=== PATIENT | female | born 1955 | race Two or more races ===

== ENCOUNTER → 2016-11-03 | Outpatient (CLI) | payer BC ==
--- NOTE | 2016-11-04 06:55 | HKNOTE ---
DATE OF SERVICE: 11/03/2016 MAIN COMPLAINT: Pain in the right knee. HISTORY OF MAIN COMPLAINT: The patient is a 60-year-old female who complains of pain in her right k nee which has been present for about 8 months. There has been no history of injury to the knee. Claudia norris has seen at least 2 orthopedic surgeons who told her that the problem arises from her right hip an d not from the knee. She has had a combination injection of Orthovisc and cortisone into the right hip and this gave her some relief for about a month. She had PRP injection into the right hip, subs equently which gave her relief for about 2 days. She now comes in for another opinion. PRESENT COMPLAINTS: The pain is localized to the anterior and medial aspects of her right knee. Th e knee does not swell, does not lock, and does not feel unstable. She does not get any pain at all in the right groin. However, she does get pain in the anterior asp ect of the right thigh below the groin which radiates down to just above the knee. Her pain is aggr avated by walking, weightbearing, and stair climbing. She does get rest pain, and she does get nigh t pain. She has been taking ibuprofen and Tylenol which helps somewhat. She also has been applying ice. She does not have any back pain, no numbness or tingling in her legs. On a flat and level harrington rface, she can walk for 3/4 of a mile without stopping. However, she does get pain in the knee with every step that she takes. She does limp all the time. Her leg lengths feel equal. She does not have a shoe lift. She can clip her toenails and tie her shoelaces. SPORTING ACTIVITIES: Walking. PAST ORTHOPEDIC HISTORY: PREVIOUS ORTHOPEDIC OPERATIONS: None. PRIOR CORTISONE INTAKE: One injection. ALCOHOL INTAKE: None. OTHER JOINT PROBLEMS: None. BLOOD TESTS FOR ARTHRITIS: None. PRIOR INJURIES TO HIPS OR KNEES: The patient fell twice and landed on her right side of her body wh en she was a child. WORK STATUS: The patient is a psychotherapist. PAST MEDICAL HISTORY: Negative. PAST SURGICAL HISTORY: Schwannoma removed February 2016. No sequelae. ALLERGIES: NONE. MEDICATIONS: None. FAMILY HISTORY: Mother of cancer, otherwise noncontributory. SYSTEMS REVIEW: Has occasional skipping heartbeats, varicose veins, gait disturbance, possibly a he art murmur, otherwise negative. HABITS: The patient does not smoke or drink alcoholic beverages. PHYSICAL EXAMINATION: GENERAL: An exceedingly youthful and fit-looking 60-year-old female. She looks at least 10 years y ounger than her stated age. VITAL SIGNS: Height 5 feet 1, weight 126 pounds. Blood pressure 135/60, temperature 98.0. EXTREMITIES: Gait appears to be normal without a trace of limp. NEUROLOGIC: Motor examination reveals no muscle deficit in the lower extremities. Deep tendon refle xes in the lower extremities: Right knee jerk plus, left knee jerk plus, right ankle jerk plus, lef t ankle jerk plus. Straight leg raising is negative bilaterally at 80 degrees. Lasegue and BALWINDER kenn ts are negative. RIGHT HIP: A full range of motion with pain in the right knee on forced flexion of the right hip as well as forced external rotation of the right hip. No tenderness anywhere around the right hip. LEFT HIP: Full range of motion without pain. RIGHT KNEE: The right knee shows normal alignment. Active and passive extension is 0 degrees. Activ e and passive flexion is 135 degrees. The medial and lateral collateral ligaments and cruciate ligam ents are intact. Reynold test is negative. There is no effusion, tenderness, scarring, crepitus, or cysts. The patella tracks normally. There is no tenderness on the articular surface of the patella o r in the patellar groove. The Q angle is normal. LEFT KNEE: The left knee shows normal alignment. Active and passive extension is 0 degrees. Active and passive flexion is 135 degrees. The medial and lateral collateral ligaments and cruciate ligamen ts are intact. Reynold test is negative. There is no effusion, tenderness, scarring, crepitus, or cy sts. The patella tracks normally. There is no tenderness on the articular surface of the patella or in the patellar groove. The Q angle is normal. IMAGING: Plain x-rays of the pelvis and right hip obtained today show advanced degenerative osteoar thritis of the right hip with marked narrowing of the joint space, not completely [id number]. Lar ge osteophytes. Subchondral sclerosis and intraosseous cyst formation. The left hip shows similar narrowing of the joint space, but none of the other secondary changes. DISCUSSION: A 60-year-old female who has seen several physicians now who had have advised her that she does not have a problem in the right knee, but the problem is indeed in her right hip. The topher ent seems to be on a quest and mentions that she has recently considered having stem cell injection into whichever joint is causing her problem. To convince her that the problem is in the hip and not in the knee, she was given injection into the right hip under sterile conditions consisting of 5 mL of 2% lidocaine. This immediately and comple tely eliminated the pain in her right "knee" on any movements of the right hip. (At her request, she was given a followup injection of 2 mL of Kenalog into the hip joint.) DIAGNOSES: 1. Advanced degenerative osteoarthritis of the right hip. 2. History of schwannoma. 3. Referred pain to the right knee. MANAGEMENT: The patient is advised that without any doubt whatsoever she will need to have a right hip replacement at some time in the near future. The operation of hip replacement was discussed wit h her in a great deal of detail. She was shown actual implants. The patient was given my manual titled "Arthritis of the Hip Joint" which contains information garrett rning the various alternatives of treatment. It includes various forms of conservative treatment, in cluding the use of nonsteroidal anti-inflammatory medications and their dangers. Various surgical al ternatives are discussed. The technique of total hip replacement is discussed in detail, including p ossible complications. Included also is a section on the possible complications of blood transfusion , a section on postoperative precautions, and an exercise program to follow at home after total hip replacement. The long-term care of a total hip replacement implant is also covered in detail. The ania lafleur was instructed to read this manual in its entirety since it is, in and of itself, a form of in formed consent. After reading this manual, the patient will make a list of further questions that paula y not have been covered adequately. The patient was further advised that this manual, although exhau stive in nature, is only intended to supplement and complement a one-on-one discussion with me. The patient referred to my website, [employer]. She was given a prescription for tramadol 50 mg p.o. b.i.d. p.c. She will call if and when she wishes to consider proceeding with hip replacement surgery. Note: A great amount of time was spent discussing anterior hip replacement with her. She was parti cularly interested in the technique of obtaining equal leg lengths. Dictated By: RANI VELARDE/SINDHU Conf#: [id number] DID#: [id number]
--- NOTE | 2016-11-04 09:32 | RADRPT ---
PROCEDURE: XR pelvis/right hip. CLINICAL INDICATION: Hip pain TECHNIQUE: AP pelvis/lateral right hip view performed COMPARISON: No prior studies are available for comparison. FINDINGS: There is severe right hip osteoarthrosis and moderate left hip osteoarthrosis. This is associated wi th joint space narrowing, subchondral sclerosis , subchondral cyst formation and osteophytosis. The re is normal mineralization. No fractures or osseous lesions are identified. The soft tissues are unremarkable. IMPRESSION: Severe right hip osteoarthrosis. Moderate left hip osteoarthrosis RPTAT: HGDB .Henri Arrieta MD, MD Date Time Electronically viewed and signed by .Henri Arrieta MD, on 11/04/2016 09:31 .B/
--- NOTE | 2016-11-04 09:33 | RADRPT ---
PROCEDURE: XR right knee. CLINICAL INDICATION: Knee pain TECHNIQUE: AP weightbearing, lateral weightbearing and sunrise views are available for review. COMPARISON: None available FINDINGS: There is mild osteoarthrosis involving the medial tibial femoral compartment (mild joint space narro wing) and the patellofemoral compartment (mild osteophytosis). There is otherwise normal mineralization, architecture and alignment. No fractures are identified. No osseous lesions are identified. The soft tissues are unremarkable. IMPRESSION: Mild osteoarthrosis involving the medial tibial femoral compartment (mild joint space narrowing) and the patellofemoral compartment (mild osteophytosis). RPTAT: HGDB .Henri Arrieta MD, Date Time Electronically viewed and signed by .Henri Arrieta MD, on 11/04/2016 09:33 .B/
== END | disposition home or self-care (01) ==
LOC: HKI 14:53
DX: M16.11 Unilateral primary osteoarthritis, right hip (principal); M25.561 Pain in right knee; M25.551 Pain in right hip
CPT/HCPCS: 20610; 73502; 73562; G0463

== ENCOUNTER → 2016-12-29 | Outpatient (CLI) | payer BC ==
[~2016-12-29] MED LIST: TRAM50TA2 PO
--- NOTE | 2016-12-29 18:51 | HKNOTE ---
DATE OF SERVICE: 12/29/2016 Patient comes for preoperative evaluation. She is seen on 12/29/2016. She is scheduled to have a r ight total hip replacement on 12/30/2016. She has been cleared for surgery by Dr. Pavan Foley. Kimberly yumiko questions were asked and answered. She read my booklet on hip arthritis and hip replacement surgery. She has not given any blood for autotransfusion. She understands the risks associated wit h using hospital blood. She is agreeable to using hospital blood if needed. Dictated By: RANI VELARDE/SINDHU Conf#: [id number] DID#: [id number]
== END | disposition home or self-care (01) ==
LOC: HKI 13:26
DX: Z01.818 Encounter for other preprocedural examination (principal); M16.11 Unilateral primary osteoarthritis, right hip
CPT/HCPCS: G0463

== ENCOUNTER 2016-12-30 06:10 | Inpatient (IN) | payer BC ==
[2016-12-30] VITALS (16 sets, daily range): BP systolic 77–123; BP diastolic 45–71; PULSE 64–88; RESP 14–19; Ht 154.9 cm; Wt 57.0 kg
[~2016-12-30] VITALS: Ht 154.9 cm; Wt 57.0 kg
[~2016-12-30 06:10] MED LIST changes: +ACETAMINOPHEN 1000MG/100ML IV 100 ML IVPB ONE; +CELECOXIB 200 MG CAP PO ONE; +DEXAMETHASONE 4 MG/ML 1 ML INJ IV ONE; +LACTATED RINGER'S 1,000 ML IV* SCH; +LANSOPRAZOLE 30 MG CAP PO ONE; +ONDANSETRON 4 MG INJ IV ONE; +SOD CHLORIDE 0.9% IVPB ONE; -TRAM50TA2 PO; +TRANEXAMIC ACID IVPB ONE; +VANCOMYCIN 1 GM (PMX) 250 ML IVPB ONE; +oxyCODONE (CR) 10 MG TAB [oxyCONTIN] PO ONE
[2016-12-30] MEDS ORDERED: TRANEXAMIC ACID IRR SCH ×2 (06:30)
[2016-12-30] MEDS ORDERED: SOD CHLORIDE 0.9% IRR SCH ×2 (06:30)
[2016-12-30] MEDS ORDERED: FENTAnyl 50 MCG/ML VIAL ONE (06:49)
[2016-12-30] MEDS ORDERED: NEOSTIGMINE 3 MG/3 ML SYRINGE ONE (06:49)
[2016-12-30] MEDS ORDERED: ROCURONIUM 50 MG INJ ONE (06:49)
[2016-12-30] MEDS ORDERED: GLYCOPYRROLATE 0.4 MG INJ ONE (06:49)
[2016-12-30] MEDS ORDERED: MIDAZOLAM 1 MG/ML 2 ML INJ ONE (06:49)
[2016-12-30] MEDS ORDERED: PROPOFOL 20 ML ONE (06:49)
[2016-12-30] MEDS ORDERED: LIDOCAINE 2% (SDV) 5 ML INJ ONE (06:49)
[2016-12-30] MEDS ORDERED: ONDANSETRON 4 MG INJ ONE (06:50)
[2016-12-30] MEDS ORDERED: DEXAMETHASONE 4 MG/ML 1 ML INJ ONE (06:50)
--- NOTE | 2016-12-30 06:52 | HPN ---
Date/Time of Note Date/Time of Note DATE: 12/30/16 TIME: 06:51 Interval H&P Admission Note Pt. seen H&P reviewed: No system changes KARL OLMOS PA-C Dec 30, 2016 06:52
[2016-12-30] MEDS ORDERED: LIDOCAINE 2%/EPI 30 ML INJ ONE (06:59)
[2016-12-30] MEDS ORDERED: ONDANSETRON 4 MG INJ IV PRN (07:00)
[2016-12-30] MEDS ORDERED: DIPHENHYDRAMINE 50 MG INJ IV PRN (07:00)
[2016-12-30] MEDS ORDERED: morphine (1 MG/ML) 10ML SYRINGE IV PRN ×3 (07:00)
[2016-12-30] MEDS ORDERED: OXYCODONE/ACETAMINOPHEN (5/325) TAB PO PRN ×2 (07:00)
[2016-12-30] MEDS ORDERED: LABETALOL HCL 20MG INJ IV PRN (07:00)
[2016-12-30] MEDS ORDERED: MIDAZOLAM 1 MG/ML 2 ML INJ IV PRN (07:00)
[2016-12-30] MEDS ORDERED: EPHEDrine SULFATE 50 MG/5 ML SYG IV PRN (07:00)
[2016-12-30] MEDS ORDERED: HYDROmorphONE (0.2 MG/ML) 10ML SYG IV PRN ×3 (07:00)
[2016-12-30] MEDS ORDERED: hydrALAzine 20 MG INJ IV PRN (07:00)
[2016-12-30] MEDS ORDERED: MEPERIDINE 25 MG INJ IV PRN (07:00)
[2016-12-30] MEDS ORDERED: ATROPINE 1 MG/10 ML SYRINGE IV PRN (07:00)
[2016-12-30] MEDS ORDERED: FENTAnyl 50 MCG/ML VIAL IV PRN ×2 (07:00)
[2016-12-30] MEDS ORDERED: POLYMYXIN B 500000 UNIT INJ ONE (07:17)
[2016-12-30] MEDS ORDERED: VANCOMYCIN 1 GM INJ ONE (07:17)
[2016-12-30] MEDS ORDERED: GELATIN SIZE 100 SPONGE ONE (07:17)
[2016-12-30] MEDS ORDERED: HEPARIN 1000 UNITS/ML 10 ML INJ ONE (07:18)
[2016-12-30] MEDS ORDERED: ROPIVACAINE 0.2% 100 ML ONE (07:18)
[2016-12-30] MEDS ORDERED: TRAM50TA2 PO (07:32)
[2016-12-30] MEDS ORDERED: BACITRACIN 50000 UNITS INJ IRR ONE (09:28)
[2016-12-30] MEDS ORDERED: ROPIVACAINE 0.2% 100ML BAG INJ ONE (09:30)
[2016-12-30] MEDS ORDERED: FUROSEMIDE 20 MG INJ ONE (11:07)
[2016-12-30] MEDS ORDERED: GELATIN SIZE 100 SPONGE TOP ONE (11:45)
--- NOTE | 2016-12-30 12:13 | PDOCDIS ---
Discharge Instructions DIAGNOSIS Discharge Diagnosis: Status post right total hip arthroplasty via anterior route CONDITION Patient Condition: Stable HOME CARE INSTRUCTIONS: Diet Instructions: Regular ACTIVITY: Activity Restrictions: Slowly Increase Activity Rest between Activity Avoid heavy lifting No Sexual Activity Do not Drive Do not operate Machinery Do not operate Power Tool Avoid Heavy Housework Keep Limb Elevated Weight Bearing (As tolerated with front wheeled walker) Bathing Restrictions: Shower (Using Tegaderm with pad. Apply prior to shower. After shower dab the area dry. Remove Tegaderm. Repeat the steps each day until opal are removed around 10 days postoperatively.) FOLLOW UP/APPOINTMENTS Appointments 01/19/2017 at 2:15 PM KARL OLMOS PA-C Dec 30, 2016 12:13
[2016-12-30] MEDS ORDERED: DOCUSATE SODIUM 100 MG CAP PO ONE ×2 (12:14→12:30)
[2016-12-30] MEDS ORDERED: CEFAZOLIN 1 GM/50 ML (PMX) 50 ML IVPB ONE (12:14)
[2016-12-30] MEDS: CEFAZOLIN 1 GM/50 ML (PMX) 50 ML IVPB SCH ×2 (12:24→21:56)
[2016-12-30] MEDS ORDERED: BETHANECHOL 25 MG TAB PO PRN (12:30)
[2016-12-30] MEDS ORDERED: NALOXONE (0.4 MG/ML) INJ IV PRN (12:30)
[2016-12-30] MEDS ORDERED: MAGNESIUM HYDROXIDE 30ML CUP PO PRN (12:30)
[2016-12-30] MEDS ORDERED: ASPIRIN (EC) 325 MG TAB PO ONE (12:30)
[2016-12-30] MEDS ORDERED: MEPERIDINE 10 MG/ML 30 ML PCA IV PRN (12:30)
[2016-12-30] MEDS ORDERED: HYDROmorphONE 0.2 MG/ML PCA IV PRN (12:30)
[2016-12-30] MEDS ORDERED: BISACODYL 10 MG SUPP PR PRN (12:30)
[2016-12-30] MEDS: DEXTROSE 5%-LR 1,000 ML IV SCH ×2 (12:30→16:58)
[2016-12-30] MEDS ORDERED: NACL 0.9% 3 ML SYG IV SCH (12:30)
[2016-12-30] MEDS ORDERED: ZOLPIDEM 5 MG TAB PO PRN (12:30)
[2016-12-30] MEDS ORDERED: DIPHENHYDRAMINE 50 MG INJ IM PRN (12:30)
[2016-12-30] MEDS ORDERED: SENNA/DOCUSATE NA (8.6MG/50MG) TAB PO PRN (12:30)
[2016-12-30] MEDS ORDERED: NA PHOSPHATE/BIPHOS 133 ML ENEMA PR PRN (12:30)
[2016-12-30] MEDS ORDERED: oxyCODONE 5 MG TAB PO PRN (12:30)
[2016-12-30] MEDS: ONDANSETRON 4 MG INJ IV SCH ×3 (12:31→23:53)
[2016-12-30] MEDS: ACETAMINOPHEN 1000MG/100ML IV 100 ML IVPB SCH ×2 (13:34→21:55)
--- NOTE | 2016-12-30 13:39 | RADRPT ---
PROCEDURE: XR Hip. CLINICAL INDICATION: Postop. TECHNIQUE: AP and frog lateral views of the right hip and an AP pelvis were performed. COMPARISON: 11/03/2016 FINDINGS: Since the prior examination, the patient has undergone placement of a bipolar hemiarthroplasty. The prosthesis is in good position and alignment. No osseous fractures seen. The patient is immediate ly postop and there are drains and surgical skin opal present. IMPRESSION: 1. Appropriate postoperative appearance to the bipolar hemiarthroplasty. 2. No evidence for fracture. RPTAT: XX .Jason Pedroza MD, MD Date Time Electronically viewed and signed by .Jason Pedroza MD, on 12/30/2016 13:38 .T/
--- NOTE | 2016-12-30 13:41 | RADRPT ---
PROCEDURE: Fluoroscopic guidance with x-ray images during right hip hemiarthroplasty placement.. CLINICAL INDICATION: Right hip hemiarthroplasty placement.. TECHNIQUE: 8 x-ray images were obtained during right hip hemiarthroplasty placement. COMPARISON: None available FINDINGS: 0.7 minutes of fluoroscopy time was utilized during pacemaker insertion. 8 x-ray images were obtain ed during the procedure in progress for guidance. Cumulative dose total is 5.72 mGy 0.169 mGym2. The right bipolar hemiarthroplasty is in good position and alignment. No evidence for fracture. Proce dure was performed by Dr. Faria. IMPRESSION: 1. Fluoroscopic guidance with x-ray images obtained for right bipolar hemiarthroplasty placement. RPTAT: XX .Jason Pedroza MD, Date Time Electronically viewed and signed by .Jason Pedroza MD, on 12/30/2016 13:41 .T/
--- NOTE | 2016-12-30 15:05 | HKNOTE ---
DATE OF SERVICE: Dear Dr. Foley, Your patient, Manohar Flores, underwent a right hip replacement at the [facility] today. Her surg sarthak and recovery were entirely uneventful. Thank you for your referral, your preoperative evaluation and for your continued participation in critical access hospital care. With warmest regards, Dictated By: RANI ESTEVEZ MD HH/NTS Conf#: [id number] DID#: [id number] CC: DARIELA FOLEY MD;*EndCC*
[2016-12-30] MEDS ORDERED: BACITRACIN 50000 UNITS INJ ONE (15:12)
[2016-12-30] MEDS ORDERED: TRANEXAMIC ACID 570 MG in SOD CHLORIDE 0.9% 100 ML IVPB ONE ×2 (15:30→18:30)
[2016-12-30] MEDS ORDERED: HIP PAIN COCKTAIL VANCO INJ SCH ×7 (15:30)
--- NOTE | 2016-12-30 16:22 | PN ---
Date/Time of Note Date/Time of Note DATE: 12/30/16 TIME: 16:16 Assessment/Plan VTE Prophylaxis VTE Prophylaxis Intervention: SCD's Lines/Catheters IV Catheter Type (from Nrsg): Peripheral IV Urinary Cath still in place: Yes Reason Cath still needed: other (indicate) (immediate post op thr) Subjective 24 Hr Interval Summary Free Text/Dictation asked to see this 61 yr old woman who has undergone right hip replacement surgery today. review of her medical history with her regular doctors notes reveal that she takes no meds and has no active medical problems. hx schwanoma removal from the lung about 8 mos ago. she has had ongoing rt knee and thigh pain for nearly a year which was found to be secondary to advanced osteoarthritis of the right hip and a normal knee. there are no allergies she is , three grown boys no other surgery than as noted above on exam she is alert and fluent complains of some rt hip pain. couldnt get up w pt this afternoon as bp was lo and she felt light headed lungs clear, abd soft, scds in place, rt hip dressing, ibarra in place, no edema , moves all four Exam/Review of Systems Vital Signs Vitals Vital Signs Date Time Temp Pulse Resp B/P Pulse Ox O2 Delivery O2 Flow Rate FiO2 12/30/16 15:04 97.7 81 18 115/65 98 Room Air 12/30/16 14:25 2.0 Medications Medications Current Medications Ropivacaine 60 ml/ Morphine Sulfate 4 mg/Clonidine 100 mcg/ Epinephrine 0.3 mg/ Ketorolac Tromethamine 30 mg/Vancomycin HCl 500 mg/Sodium Chloride 50 ml INTRA- OP INJ ; Start 12/30/16 at 15:30 Dextrose/Lactated Ringer's (D5-Lr) 1,000 ml @ 80 mls/hr [id number] IV ; Start at 12:30 Hydromorphone HCl (Dilaudid TRAINING COORDINATOR) Q4PCA PRN IV SEVERE PAIN 8-10; Start at 12:30; Stop 12/31/16 at 09:00 Meperidine HCl (Demerol TRAINING COORDINATOR) Q4PCA PRN IV SEVERE PAIN 8-10; Start 12/30/16 at 12:30; Stop 12/31/16 at 09:00 Oxycodone HCl (Roxicodone) 20 mg Q3H PRN PO PAIN LEVEL 8-10; Start 12/30/16 at 12:30 Oxycodone HCl (Roxicodone) 10 mg Q3H PRN PO PAIN LEVEL 4-7; Start 12/30/16 at 12:30 Oxycodone HCl 5 mg 5 mg Q3H PRN PO PAIN LEVEL 1-3 Last administered on 15:36; Admin Dose 5 MG; Start 12/30/16 at 12:30 Acetaminophen (Ofirmev 1000mg/ 100ml Iv) 100 ml @ 400 mls/hr Q8H IVPB Last administered on 12/30/16 13:34; Admin Dose 400 MLS/HR; Start 12/30/16 at 12:30 ; Stop 01/01/17 at 04:44 Zolpidem Tartrate (Ambien) 5 mg HS PRN PO INSOMNIA; Start 12/30/16 at 12:30 Ondansetron HCl 4 mg 4 mg Q6H IV Last administered on 12/30/16 12:31; Admin Dose 4 MG; Start 12/30/16 at 12:30; Stop 12/31/16 at 06:31 Cefazolin Sodium (Ancef 1 Gm/50 ml (Pmx)) 50 ml @ 100 mls/hr Q8H IVPB Last administered on 12/30/16 12:24; Admin Dose 100 MLS/HR; Start 12/30/16 at 12:30 ; Stop 12/31/16 at 04:59 Aspirin (Ecotrin) 325 mg BID PO ; Start 12/31/16 at 09:00 Celecoxib (Celebrex) 200 mg BID PO ; Start 12/31/16 at 09:00 Dexamethasone (Decadron) 4 mg DAILY@07 IV ; Start 12/31/16 at 07:00; Stop at 06:59 Pantoprazole (Protonix Tab) 40 mg DAILY@06 PO ; Start 12/31/16 at 06:00 Docusate Sodium/ Ferrous Fumarate (Ct-Sequels) 1 tab BID PO ; Start 12/31/16 at 09:00 Docusate Sodium (Colace) 200 mg BID PO ; Start 12/31/16 at 09:00; Stop 01/02/17 at 21:01 Simethicone (Mylicon) 80 mg TID PRN PO DISTENSION/GAS/BLOATING; Start 12/30/16 at 12:30 Senna/Docusate Sodium (Senokot-S) 2 tab BID PRN PO CONSTIPATION; Start at 12:30 Magnesium Hydroxide (Milk Of Mag) 30 ml HS PRN PO CONSTIPATION; Start 12/30/16 at 12:30 Bisacodyl (Dulcolax Supp) 10 mg DAILY PRN OR CONSTIPATION; Start 12/30/16 at 12 :30 Sodium Biphosphate/ Sodium Phosphate (Fleet Enema) 133 ml DAILY PRN OR CONSTIPATION; Start 12/30/16 at 12:30 Diphenhydramine HCl (Benadryl) 25 mg Q4H PRN IM ITCHING OR RASH; Start at 12:30 Ketorolac Tromethamine (Toradol) 15 mg DAILY@06 PRN INJ ADMINSTER BY SURGEON ONLY; Start 12/31/16 at 06:00; Stop 01/02/17 at 23:59 Bupivacaine HCl/ Epinephrine Bitart (Marcaine 0.25%/ Epi (Sdv) 30 ml) 20 ml DAILY@06 PRN INJ ADMINSTER BY SURGEON ONLY; Start 12/31/16 at 06:00; Stop 01/02 at 23:59 Naloxone HCl (Narcan) 0.2 mg Q2M PRN IV DECREASED REPIRATORY RATE; Start at 12:30 MILDRED GRUBER MD Dec 30, 2016 16:22
[2016-12-30] MEDS: morphine 2 MG INJ IV PRN (18:17)
[2016-12-31] MEDS: DEXTROSE 5%-LR 1,000 ML IV SCH ×2 (01:00→13:30)
[2016-12-31] MEDS: morphine 2 MG INJ IV PRN (02:41)
[2016-12-31] MEDS: ACETAMINOPHEN 1000MG/100ML IV 100 ML IVPB SCH ×3 (04:32→20:45)
[2016-12-31] MEDS: CEFAZOLIN 1 GM/50 ML (PMX) 50 ML IVPB SCH (04:32)
[2016-12-31 05:03] LABS: ADD SCAN DIFF NO
[2016-12-31 05:15] LABS: BASOPHILS % 0.1 % (0.0-2.0); EOSINOPHILS % 0.1 % (0.0-7.0); HEMATOCRIT 27.2 % (37.0-47.0); HEMOGLOBIN 9.2 g/dl (12.0-16.0); LYMPHOCYTES # 1.8 10^3/ul (0.8-2.9); LYMPHOCYTES % 14.7 % (15.0-51.0); MEAN CORPUSCULAR HEMOGLOBIN 31.2 pg (29.0-33.0); MEAN CORPUSCULAR HGB CONC 33.8 g/dl (32.0-37.0); MEAN CORPUSCULAR VOLUME 92.2 fl (82.0-101.0); MEAN PLATELET VOLUME 11.3 fl (7.4-10.4); MONOCYTES % 8.4 % (0.0-11.0); NEUTROPHIL # 9.3 10^3/ul (1.6-7.5); NEUTROPHILS % 76.4 % (39.0-77.0); PLATELET COUNT 196 10^3/UL (140-415); RED BLOOD COUNT 2.95 10^6/ul (4.20-5.40); RED CELL DISTRIBUTION WIDTH 13.3 % (11.5-14.5); WHITE BLOOD COUNT 12.2 10^3/ul (4.8-10.8)
[2016-12-31] MEDS: PANTOPRAZOLE (EC) 40 MG TAB PO SCH (06:00)
[2016-12-31] MEDS ORDERED: KETOROLAC 15 MG INJ INJ PRN (06:00)
[2016-12-31] MEDS ORDERED: BUPIVACAINE 0.25%/EPI (SDV) 30 ML INJ INJ PRN (06:00)
[2016-12-31] MEDS: ONDANSETRON 4 MG INJ IV SCH (06:45)
[2016-12-31] MEDS: DEXAMETHASONE 4 MG/ML 1 ML INJ IV SCH (06:45)
--- NOTE | 2016-12-31 07:55 | PN ---
Date/Time of Note Date/Time of Note DATE: 12/31/16 TIME: 07:50 Assessment/Plan VTE Prophylaxis VTE Prophylaxis Intervention: other (ASA) Lines/Catheters IV Catheter Type (from Nrsg): Peripheral IV Urinary Cath still in place: Yes Reason Cath still needed: urinary retention Assessment/Plan Problems: (1) Osteoarthritis of right hip Status: Resolved (2) Aftercare following right hip joint replacement surgery Status: Acute Comment: Doing well POD#1. Doubt pt. will have recurrence of dizziness during PT today as was likely prolonged anesthesia effect. Pt. having good pain tolerance and expect she will do well. Defer to primary team for pain management and PT. Will monitor for medical issues should they arise. Subjective 24 Hr Interval Summary Constitutional: improved, no complaints Respiratory: no complaints Cardiovascular: no complaints Gastrointestinal: no complaints Genitourinary: no complaints Musculoskeletal: bone/joint pain (mostly well-controlled) Neurologic: no complaints Psychological: anxiety (unable to do PT yesterday due to pain and dizziness-- worried that will occur again today.) Exam/Review of Systems Vital Signs Vitals VS - Last 72 Hours, by Label Date Time Temp Pulse Resp B/P Pulse Ox O2 Delivery O2 Flow Rate FiO2 12/30/16 19:41 97.9 73 19 113/56 100 12/30/16 17:03 98.0 88 18 119/61 98 Room Air 12/30/16 15:04 97.7 81 18 115/65 98 Room Air 12/30/16 14:25 68 17 103/54 100 Nasal Cannula 2.0 12/30/16 14:10 78 17 107/51 100 Nasal Cannula 2.0 12/30/16 13:25 64 16 120/56 100 Nasal Cannula 2.0 12/30/16 13:10 68 16 116/60 100 Nasal Cannula 2.0 12/30/16 12:55 74 18 111/61 100 Nasal Cannula 2.0 12/30/16 12:35 74 19 92/60 99 Nasal Cannula 2.0 12/30/16 12:30 78 19 104/57 100 Nasal Cannula 2.0 12/30/16 12:25 76 15 106/51 100 Nasal Cannula 2.0 12/30/16 12:20 72 14 114/55 100 Nasal Cannula 2.0 12/30/16 12:15 68 15 83/46 97 Nasal Cannula 2.0 12/30/16 12:13 98.0 12/30/16 12:10 74 14 77/45 98 Nasal Cannula 2.0 12/30/16 12:05 98.2 70 16 93/50 97 Room Air 2.0 12/30/16 06:30 98.6 72 18 123/71 98 Room Air Vital Signs Date Time Temp Pulse Resp B/P Pulse Ox O2 Delivery O2 Flow Rate FiO2 12/30/16 19:41 97.9 73 19 113/56 100 12/30/16 17:03 Room Air 12/30/16 14:25 2.0 Intake and Output 12/30/16 12/30/16 12/31/16 15:00 23:00 07:00 Intake Total 3561.34 ml 425 ml 1600 ml Output Total 1270 ml 1510 ml 2190 ml Balance 2291.34 ml -1085 ml -590 ml Exam Constitutional: alert, oriented, well developed Psych: nl mood/affect, no complaints Respiratory: clear to auscultation, normal air movement Cardiovascular: nl pulses, regular rate and rhythm, No edema, No murmurs/extra sounds, No rub Gastrointestinal: bowel sounds, nl liver, spleen, non-tender, soft, No mass, No rebound or guarding Musculoskeletal: nl extremities to inspection Extremities: normal pulses, No clubbing, No cyanosis, No edema Neurological: CULVERT INSTALLER II-XII intact, nl mental status, nl speech, nl strength Results Result Diagram: 12/31/16 0431 Results 24 hrs Laboratory Tests Test 12/31/16 04:31 White Blood Count 12.2 H Red Blood Count 2.95 L Hemoglobin 9.2 L Hematocrit 27.2 L Mean Corpuscular Volume 92.2 Mean Corpuscular Hemoglobin 31.2 Mean Corpuscular Hemoglobin Concent 33.8 Red Cell Distribution Width 13.3 Platelet Count 196 Mean Platelet Volume 11.3 H Neutrophils % 76.4 Lymphocytes % 14.7 L Monocytes % 8.4 Eosinophils % 0.1 Basophils % 0.1 Nucleated Red Blood Cells % 0.0 Neutrophils # 9.3 H Lymphocytes # 1.8 Monocytes # 1.0 H Eosinophils # 0.0 Basophils # 0.0 Nucleated Red Blood Cells # 0.0 Medications Medications Current Medications Ropivacaine 60 ml/ Morphine Sulfate 4 mg/Clonidine 100 mcg/ Epinephrine 0.3 mg/ Ketorolac Tromethamine 30 mg/Vancomycin HCl 500 mg/Sodium Chloride 50 ml INTRA- OP INJ ; Start 12/30/16 at 15:30 Dextrose/Lactated Ringer's (D5-Lr) 1,000 ml @ 80 mls/hr [id number] IV Last administered on 12/30/16 16:58; Admin Dose 80 MLS/HR; Start 12/30/16 at 12:30 Hydromorphone HCl (Dilaudid PC SUPPORT SPECIALIST) Q4PCA PRN IV SEVERE PAIN 8-10; Start at 12:30; Stop 12/31/16 at 09:00 Meperidine HCl (Demerol PC SUPPORT SPECIALIST) Q4PCA PRN IV SEVERE PAIN 8-10; Start 12/30/16 at 12:30; Stop 12/31/16 at 09:00 Oxycodone HCl (Roxicodone) 20 mg Q3H PRN PO PAIN LEVEL 8-10; Start 12/30/16 at 12:30 Oxycodone HCl (Roxicodone) 10 mg Q3H PRN PO PAIN LEVEL 4-7; Start 12/30/16 at 12:30 Oxycodone HCl 5 mg 5 mg Q3H PRN PO PAIN LEVEL 1-3 Last administered on 15:36; Admin Dose 5 MG; Start 12/30/16 at 12:30 Acetaminophen (Ofirmev 1000mg/ 100ml Iv) 100 ml @ 400 mls/hr Q8H IVPB Last administered on 12/31/16 04:32; Admin Dose 400 MLS/HR; Start 12/30/16 at 12:30 ; Stop 01/01/17 at 04:44 Zolpidem Tartrate (Ambien) 5 mg HS PRN PO INSOMNIA; Start 12/30/16 at 12:30 Aspirin (Ecotrin) 325 mg BID PO ; Start 12/31/16 at 09:00 Celecoxib (Celebrex) 200 mg BID PO ; Start 12/31/16 at 09:00 Dexamethasone (Decadron) 4 mg DAILY@07 IV Last administered on 12/31/16 06:45 ; Admin Dose 4 MG; Start 12/31/16 at 07:00; Stop 01/03/17 at 06:59 Pantoprazole (Protonix Tab) 40 mg DAILY@06 PO ; Start 12/31/16 at 06:00 Docusate Sodium/ Ferrous Fumarate (Ct-Sequels) 1 tab BID PO ; Start 12/31/16 at 09:00 Docusate Sodium (Colace) 200 mg BID PO ; Start 12/31/16 at 09:00; Stop 01/02/17 at 21:01 Simethicone (Mylicon) 80 mg TID PRN PO DISTENSION/GAS/BLOATING; Start 12/30/16 at 12:30 Senna/Docusate Sodium (Senokot-S) 2 tab BID PRN PO CONSTIPATION; Start at 12:30 Magnesium Hydroxide (Milk Of Mag) 30 ml HS PRN PO CONSTIPATION; Start 12/30/16 at 12:30 Bisacodyl (Dulcolax Supp) 10 mg DAILY PRN RI CONSTIPATION; Start 12/30/16 at 12 :30 Sodium Biphosphate/ Sodium Phosphate (Fleet Enema) 133 ml DAILY PRN RI CONSTIPATION; Start 12/30/16 at 12:30 Diphenhydramine HCl (Benadryl) 25 mg Q4H PRN IM ITCHING OR RASH; Start at 12:30 Ketorolac Tromethamine (Toradol) 15 mg DAILY@06 PRN INJ ADMINSTER BY SURGEON ONLY; Start 12/31/16 at 06:00; Stop 01/02/17 at 23:59 Bupivacaine HCl/ Epinephrine Bitart (Marcaine 0.25%/ Epi (Sdv) 30 ml) 20 ml DAILY@06 PRN INJ ADMINSTER BY SURGEON ONLY; Start 12/31/16 at 06:00; Stop 01/02 at 23:59 Naloxone HCl (Narcan) 0.2 mg Q2M PRN IV DECREASED REPIRATORY RATE; Start at 12:30 Morphine Sulfate (morphine) 2 mg Q6H PRN IV PAIN Last administered on t 02:41; Admin Dose 2 MG; Start 12/30/16 at 18:00 DARIELA COX MD Dec 31, 2016 07:55
[2016-12-31] MEDS: FERROUS FUMARATE (SR) TAB PO SCH ×2 (09:09→20:46)
[2016-12-31] MEDS: CELECOXIB 200 MG CAP PO SCH ×2 (09:10→20:46)
[2016-12-31] MEDS: ASPIRIN (EC) 325 MG TAB PO SCH ×2 (09:10→20:46)
[2016-12-31] MEDS: DOCUSATE SODIUM 100 MG CAP PO SCH ×2 (09:10→20:46)
[2016-12-31] MEDS: oxyCODONE 5 MG TAB PO PRN ×3 (09:42→16:04)
[2016-12-31 09:43] VITALS: BP 89/51; RESP 19
--- NOTE | 2016-12-31 19:14 | RADRPT ---
PROCEDURE: CT scanogram. CLINICAL INDICATION: Evaluate leg length discrepancy. TECHNIQUE: AP and lateral fast food server views of the lower extremities were obtained. COMPARISON: None available FINDINGS: Right lower extremity: The length of the right lower extremity including the femur and tibia measur ed from the head of the femoral head prosthesis to the tibial plafond measures 71.38 cm. Left lower extremity: The length of the left lower extremity including the femur and tibia measured from the top of the femoral head to the tibial plafond measures 71.37 cm. IMPRESSION: 1. Recent noncemented right hip hemiarthroplasty. 2. Limb length measurements, as above. 3. No significant limb length discrepancy. RPTAT: UU .Zachary Gonzalez MD, MD Date Time Electronically viewed and signed by .Zachary Gonzalez MD, on 12/31/2016 18:55 .d/
[2016-12-31 21:32] VITALS: BP 115/56; RESP 20
[2017-01-01] MEDS: DEXTROSE 5%-LR 1,000 ML IV SCH ×2 (02:00→14:30)
[2017-01-01] MEDS: PANTOPRAZOLE (EC) 40 MG TAB PO SCH (05:16)
[2017-01-01] MEDS: ACETAMINOPHEN 1000MG/100ML IV 100 ML IVPB SCH (05:16)
[2017-01-01] MEDS: DEXAMETHASONE 4 MG/ML 1 ML INJ IV SCH (06:03)
[2017-01-01 06:42] LABS: ADD SCAN DIFF NO
[2017-01-01 07:01] LABS: BASOPHILS % 0.2 % (0.0-2.0); EOSINOPHILS # 0.1 10^3/ul (0.0-0.5); HEMATOCRIT 27.4 % (37.0-47.0); HEMOGLOBIN 9.4 g/dl (12.0-16.0); LYMPHOCYTES # 2.3 10^3/ul (0.8-2.9); LYMPHOCYTES % 24.7 % (15.0-51.0); MEAN CORPUSCULAR HEMOGLOBIN 31.5 pg (29.0-33.0); MEAN CORPUSCULAR HGB CONC 34.3 g/dl (32.0-37.0); MEAN CORPUSCULAR VOLUME 91.9 fl (82.0-101.0); MEAN PLATELET VOLUME 11.8 fl (7.4-10.4); MONOCYTE # 0.7 10^3/ul (0.3-0.9); MONOCYTES % 7.5 % (0.0-11.0); NEUTROPHIL # 6.2 10^3/ul (1.6-7.5); NEUTROPHILS % 66.3 % (39.0-77.0); PLATELET COUNT 180 10^3/UL (140-415); RED BLOOD COUNT 2.98 10^6/ul (4.20-5.40); RED CELL DISTRIBUTION WIDTH 13.5 % (11.5-14.5); WHITE BLOOD COUNT 9.4 10^3/ul (4.8-10.8)
[2017-01-01] MEDS: CELECOXIB 200 MG CAP PO SCH ×2 (08:21→20:17)
[2017-01-01] MEDS: FERROUS FUMARATE (SR) TAB PO SCH ×2 (08:21→20:17)
[2017-01-01] MEDS: ASPIRIN (EC) 325 MG TAB PO SCH ×2 (08:21→20:18)
[2017-01-01] MEDS: DOCUSATE SODIUM 100 MG CAP PO SCH ×2 (08:22→20:18)
[2017-01-01 08:34] VITALS: BP 118/56; RESP 16
--- NOTE | 2017-01-01 11:37 | PN ---
Date/Time of Note Date/Time of Note DATE: 01/01/17 TIME: 11:34 Assessment/Plan VTE Prophylaxis VTE Prophylaxis Intervention: other (ASA) Lines/Catheters IV Catheter Type (from Nrs): Saline Lock Urinary Cath still in place: No Assessment/Plan Problems: (1) Aftercare following right hip joint replacement surgery Status: Acute Comment: Doing well POD#2. Now doing PT effectively. Reports wants to walk straight and still not doing that. Likely will be ready for d/c tomorrow as scheduled but will defer this to primary team. Subjective 24 Hr Interval Summary Constitutional: improved (able to do PT yesterday without difficulty or dizziness), no complaints Respiratory: no complaints Cardiovascular: no complaints Gastrointestinal: no complaints Genitourinary: no complaints Musculoskeletal: no complaints Neurologic: no complaints Exam/Review of Systems Vital Signs Vitals VS - Last 72 Hours, by Label Date Time Temp Pulse Resp B/P Pulse Ox O2 Delivery O2 Flow Rate FiO2 01/01/17 08:34 98.0 70 16 118/56 100 12/31/16 21:32 98.4 71 20 115/56 96 12/31/16 09:43 97.6 71 19 89/51 99 12/30/16 19:41 97.9 73 19 113/56 100 12/30/16 17:03 98.0 88 18 119/61 98 Room Air 12/30/16 15:04 97.7 81 18 115/65 98 Room Air 12/30/16 14:25 68 17 103/54 100 Nasal Cannula 2.0 12/30/16 14:10 78 17 107/51 100 Nasal Cannula 2.0 12/30/16 13:25 64 16 120/56 100 Nasal Cannula 2.0 12/30/16 13:10 68 16 116/60 100 Nasal Cannula 2.0 12/30/16 12:55 74 18 111/61 100 Nasal Cannula 2.0 12/30/16 12:35 74 19 92/60 99 Nasal Cannula 2.0 12/30/16 12:30 78 19 104/57 100 Nasal Cannula 2.0 12/30/16 12:25 76 15 106/51 100 Nasal Cannula 2.0 12/30/16 12:20 72 14 114/55 100 Nasal Cannula 2.0 12/30/16 12:15 68 15 83/46 97 Nasal Cannula 2.0 12/30/16 12:13 98.0 12/30/16 12:10 74 14 77/45 98 Nasal Cannula 2.0 12/30/16 12:05 98.2 70 16 93/50 97 Room Air 2.0 12/30/16 06:30 98.6 72 18 123/71 98 Room Air Vital Signs Date Time Temp Pulse Resp B/P Pulse Ox O2 Delivery O2 Flow Rate FiO2 01/01/17 08:34 98.0 70 16 118/56 100 12/30/16 17:03 Room Air 12/30/16 14:25 2.0 Intake and Output 12/31/16 12/31/16 01/01/17 15:00 23:00 07:00 Intake Total 1360 ml 960 ml Output Total 950 ml Balance 410 ml 960 ml Exam Constitutional: alert, oriented, well developed Psych: nl mood/affect, no complaints Respiratory: clear to auscultation, normal air movement Cardiovascular: nl pulses, regular rate and rhythm, No edema, No murmurs/extra sounds, No rub Gastrointestinal: bowel sounds, nl liver, spleen, non-tender, soft, No mass, No rebound or guarding Musculoskeletal: nl extremities to inspection Extremities: normal pulses, No clubbing, No cyanosis, No edema Neurological: MANAGER NIGHT II-XII intact, nl mental status, nl speech, nl strength Results Result Diagram: 01/01/17 0459 Results 24 hrs Laboratory Tests Test 01/01/17 04:59 01/01/17 07:14 White Blood Count 9.4 # Red Blood Count 2.98 L Hemoglobin 9.4 L Hematocrit 27.4 L Mean Corpuscular Volume 91.9 Mean Corpuscular Hemoglobin 31.5 Mean Corpuscular Hemoglobin Concent 34.3 Red Cell Distribution Width 13.5 Platelet Count 180 Mean Platelet Volume 11.8 H Neutrophils % 66.3 Lymphocytes % 24.7 Monocytes % 7.5 Eosinophils % 1.0 Basophils % 0.2 Nucleated Red Blood Cells % 0.0 Neutrophils # 6.2 Lymphocytes # 2.3 Monocytes # 0.7 Eosinophils # 0.1 Basophils # 0.0 Nucleated Red Blood Cells # 0.0 Lab Scanned Report REFERENCE LAB Medications Medications Current Medications Ropivacaine 60 ml/ Morphine Sulfate 4 mg/Clonidine 100 mcg/ Epinephrine 0.3 mg/ Ketorolac Tromethamine 30 mg/Vancomycin HCl 500 mg/Sodium Chloride 50 ml INTRA- OP INJ ; Start 12/30/16 at 15:30 Dextrose/Lactated Ringer's (D5-Lr) 1,000 ml @ 80 mls/hr [id number] IV Last administered on 12/30/16 16:58; Admin Dose 80 MLS/HR; Start 12/30/16 at 12:30 Oxycodone HCl (Roxicodone) 20 mg Q3H PRN PO PAIN LEVEL 8-10 Last administered on 12/31/16 16:04; Admin Dose 20 MG; Start 12/30/16 at 12:30 Oxycodone HCl (Roxicodone) 10 mg Q3H PRN PO PAIN LEVEL 4-7; Start 12/30/16 at 12:30 Oxycodone HCl (Roxicodone) 5 mg Q3H PRN PO PAIN LEVEL 1-3 Last administered on 12/30/16 15:36; Admin Dose 5 MG; Start 12/30/16 at 12:30 Zolpidem Tartrate (Ambien) 5 mg HS PRN PO INSOMNIA; Start 12/30/16 at 12:30 Aspirin (Ecotrin) 325 mg BID PO Last administered on 01/01/17 08:21; Admin Dose 325 MG; Start 12/31/16 at 09:00 Celecoxib (Celebrex) 200 mg BID PO Last administered on 01/01/17 08:21; Admin Dose 200 MG; Start 12/31/16 at 09:00 Dexamethasone (Decadron) 4 mg DAILY@07 IV Last administered on 01/01/17 06:03 ; Admin Dose 4 MG; Start 12/31/16 at 07:00; Stop 01/03/17 at 06:59 Pantoprazole (Protonix Tab) 40 mg DAILY@06 PO Last administered on 01/01/17 05 :16; Admin Dose 40 MG; Start 12/31/16 at 06:00 Docusate Sodium/ Ferrous Fumarate (Ct-Sequels) 1 tab BID PO Last administered on 01/01/17 08:21; Admin Dose 1 TAB; Start 12/31/16 at 09:00 Docusate Sodium (Colace) 200 mg BID PO Last administered on 01/01/17 08:22; Admin Dose 200 MG; Start 12/31/16 at 09:00; Stop 01/02/17 at 21:01 Simethicone (Mylicon) 80 mg TID PRN PO DISTENSION/GAS/BLOATING; Start 12/30/16 at 12:30 Senna/Docusate Sodium (Senokot-S) 2 tab BID PRN PO CONSTIPATION; Start at 12:30 Magnesium Hydroxide (Milk Of Mag) 30 ml HS PRN PO CONSTIPATION; Start 12/30/16 at 12:30 Bisacodyl (Dulcolax Supp) 10 mg DAILY PRN TN CONSTIPATION; Start 12/30/16 at 12 :30 Sodium Biphosphate/ Sodium Phosphate (Fleet Enema) 133 ml DAILY PRN TN CONSTIPATION; Start 12/30/16 at 12:30 Diphenhydramine HCl (Benadryl) 25 mg Q4H PRN IM ITCHING OR RASH; Start at 12:30 Ketorolac Tromethamine (Toradol) 15 mg DAILY@06 PRN INJ ADMINSTER BY SURGEON ONLY; Start 12/31/16 at 06:00; Stop 01/02/17 at 23:59 Bupivacaine HCl/ Epinephrine Bitart (Marcaine 0.25%/ Epi (Sdv) 30 ml) 20 ml DAILY@06 PRN INJ ADMINSTER BY SURGEON ONLY; Start 12/31/16 at 06:00; Stop 01/02 at 23:59 Naloxone HCl (Narcan) 0.2 mg Q2M PRN IV DECREASED REPIRATORY RATE; Start at 12:30 Morphine Sulfate (morphine) 2 mg Q6H PRN IV PAIN Last administered on t 02:41; Admin Dose 2 MG; Start 12/30/16 at 18:00 DARIELA COX MD Jan 01, 2017 11:37
[2017-01-01] MEDS: oxyCODONE 5 MG TAB PO PRN ×3 (12:08→21:38)
--- NOTE | 2017-01-01 12:52 | PN ---
DATE: 12/31/2016 Postoperative day #1. SUBJECTIVE: On entering her room, the patient immediately complains that her operated leg is too lo ng. LABORATORY RESULTS: Hemoglobin is 9.2, white cell count is 12.2. OBJECTIVE: Dressings were changed. Hemovac drain was removed. The patient's wound looks excellent . Examination of her leg seems to indicate that the right leg is longer than the left leg. MANAGEMENT: The patient was advised that patients frequently have this sensation. She was told alysia t we used extraordinary care using the [employer]. We had 2 of the teachers of the [employer] em in the operating room, both of them confirming each other's results and that the intraoperative m easurements were as correct as could possibly be made. The patient is advised that most likely this is due to pelvic tilt and she can expect the legs to ev en out within the next few days. A CAT scan leg length measurement was ordered, in order to determine if there is any actual discrepa ncy and also to lay the patient's fears. Dictated By: RANI VELARDE/SINDHU Conf#: [id number] DID#: [id number]
--- NOTE | 2017-01-01 12:53 | PN ---
DATE: 01/01/2017 SUBJECTIVE: The patient is comfortable. She indicates that the right leg still feels longer than t he left leg. She was advised that I spoke to the radiologist yesterday after the CAT scan and that the CAT scan leg length measurements showed the legs to be of equal length. OBJECTIVE: With her lying in bed today, it does indeed appear that the right leg is longer than the left leg. I went to the radiology department to discuss this with the radiologist, but as yet ther e are no radiologists available. The actual scanogram pictures were reviewed by me. The measuremen ts appear to be off by 0.01 mm, so it is difficult to explain the leg length discrepancy. It is possible that the technique of measurement is not correct. I will discuss this later with the radiologist. Meanwhile, her dressings were changed. Wounds are clean and healing well. Hemoglobin today is 9.4, white cell count is also 9.4, and temperature is normal. Dictated By: RANI VELARDE/SINDHU Conf#: [id number] DID#: [id number]
[2017-01-01 19:45] VITALS: BP 122/60; RESP 17
[2017-01-02] VITALS (12 sets, daily range): BP systolic 109–143; BP diastolic 58–79; PULSE 76–82; RESP 13–20
[2017-01-02] MEDS: DEXTROSE 5%-LR 1,000 ML IV SCH ×2 (03:00→15:30)
[2017-01-02] MEDS: DEXAMETHASONE 4 MG/ML 1 ML INJ IV SCH (06:15)
[2017-01-02] MEDS: PANTOPRAZOLE (EC) 40 MG TAB PO SCH (06:15)
[2017-01-02] MEDS: oxyCODONE 5 MG TAB PO PRN (06:20)
[2017-01-02 06:38] LABS: ADD SCAN DIFF NO
[2017-01-02 06:42] LABS: BASOPHILS % 0.2 % (0.0-2.0); EOSINOPHILS # 0.1 10^3/ul (0.0-0.5); EOSINOPHILS % 1.3 % (0.0-7.0); HEMATOCRIT 26.7 % (37.0-47.0); HEMOGLOBIN 8.6 g/dl (12.0-16.0); LYMPHOCYTES # 2.4 10^3/ul (0.8-2.9); MEAN CORPUSCULAR HEMOGLOBIN 30.5 pg (29.0-33.0); MEAN CORPUSCULAR HGB CONC 32.2 g/dl (32.0-37.0); MEAN CORPUSCULAR VOLUME 94.7 fl (82.0-101.0); MEAN PLATELET VOLUME 11.8 fl (7.4-10.4); MONOCYTE # 0.7 10^3/ul (0.3-0.9); MONOCYTES % 8.3 % (0.0-11.0); NEUTROPHIL # 5.1 10^3/ul (1.6-7.5); NEUTROPHILS % 60.8 % (39.0-77.0); PLATELET COUNT 188 10^3/UL (140-415); RED BLOOD COUNT 2.82 10^6/ul (4.20-5.40); RED CELL DISTRIBUTION WIDTH 13.9 % (11.5-14.5); WHITE BLOOD COUNT 8.4 10^3/ul (4.8-10.8)
[2017-01-02] MEDS: FERROUS FUMARATE (SR) TAB PO SCH ×2 (08:51→21:46)
[2017-01-02] MEDS: CELECOXIB 200 MG CAP PO SCH ×2 (08:51→21:46)
[2017-01-02] MEDS: DOCUSATE SODIUM 100 MG CAP PO SCH ×2 (08:51→21:46)
[2017-01-02] MEDS: ASPIRIN (EC) 325 MG TAB PO SCH ×2 (08:51→21:46)
--- NOTE | 2017-01-02 11:53 | PN ---
Date/Time of Note Date/Time of Note DATE: 01/02/17 TIME: 11:50 Assessment/Plan VTE Prophylaxis VTE Prophylaxis Intervention: ambulation, SCD's, other (Aspirin 325 mg twice daily) Lines/Catheters IV Catheter Type (from Nrsg): Saline Lock Giordano in Place (from Nrsg): No Assessment/Plan Assessment/Plan -Pain Cocktail Given. Drains removed -Pain Meds as needed -Dress change performed today -OOB with PT -ASA/SCDs for DVT Prophylaxis -Discussed with Dr. Faria today and patient will go back into the OR to use RadLink to get more specifics in regards to abnormal limb length. Dr. Faria states that no surgery will likely be performed and therefore patient does not need to be under anesthesia or have any other precautions like being n.p.o. prior to surgery. Presentation to the OR is for evaluation under radiology with specifics using RadLink technology. Patient has signed consent to proceed. -Continue monitoring with Internal Medicine -Patient Stable Subjective 24 Hr Interval Summary 60-year-old female postop day 3 status post right total hip arthroplasty via anterior route. Denies any pain complaints. Patient's main complaint is feeling of abnormal limb length. CT scan over the weekend shows 0.01 mm discrepancy which is negligible. Patient is up and walking. When patient lies on the bed there is noticed abnormal limb length as well. Denies any other complaints. No chest pain, tightness, calf pain. Exam/Review of Systems Vital Signs Vitals Vital Signs Date Time Temp Pulse Resp B/P Pulse Ox O2 Delivery O2 Flow Rate FiO2 01/01/17 19:45 98.6 83 17 122/60 98 12/30/16 17:03 Room Air 12/30/16 14:25 2.0 Intake and Output 01/01/17 01/01/17 01/02/17 15:00 23:00 07:00 Intake Total 800 ml 680 ml Output Total 600 ml Balance 200 ml 680 ml Exam Free Text/Dictation -Pain Cocktail Drains: Intact -Incision: Clean, Dry and Intact without any redness or drainage -Thigh soft -5/5 Quadriceps, Tibialis Anterior, EHL Gastrocnemius/Soleus and Peroneals -Abnormal gait with use of front wheeled walker. Patient is able to also sit comfortably at 90. -Normal Sensation -Palpable DP/PT, Capillary Refill <2 secs -No Distal Edema -Negative Christianne Sign/No calf pain -Toes Freely Movable Results Result Diagram: 01/02/17 0510 KARL OLMOS PA-C Jan 02, 2017 11:53
[2017-01-02] MEDS ORDERED: MIDAZOLAM 1 MG/ML 2 ML INJ ONE (17:51)
[2017-01-02] MEDS ORDERED: FENTAnyl 50 MCG/ML VIAL ONE (17:51)
[2017-01-02] MEDS ORDERED: ONDANSETRON 4 MG INJ IV PRN (18:30)
[2017-01-02] MEDS ORDERED: FENTAnyl 50 MCG/ML VIAL IV PRN (18:30)
[2017-01-02] MEDS ORDERED: DIPHENHYDRAMINE 50 MG INJ IV PRN (18:30)
[2017-01-02] MEDS ORDERED: PROPOFOL 20 ML ONE (18:31)
[2017-01-02] MEDS ORDERED: LIDOCAINE 2% (SDV) 5 ML INJ ONE (18:31)
[2017-01-02] MEDS ORDERED: ONDANSETRON 4 MG INJ ONE (18:32)
--- NOTE | 2017-01-02 19:39 | RADRPT ---
PROCEDURE: Lumbar spine limited CLINICAL INDICATION: Pain TECHNIQUE: Single AP supine exposure of the thoracolumbar spine from the level of T9 to the femora l heads is performed COMPARISON: Right hip series 12/30/2016 FINDINGS: Moderate degenerative disk narrowing and spondylosis extended to the left is present at T9-10 with m ild degenerative spondylosis to the left at T10-11. There is a mild degree of endplate spondylosis with trace disk narrowing at L1-2. Minimal superior L4 endplate spondylosis is seen. Partially vis ualized right hip arthroplasty appears satisfactory. The pelvic bones included in the field of view as well as sacrum and sacroiliac joints are unremarkable. There is mild to moderate narrowing of t he left superior hip joint. RPTAT:HJJR IMPRESSION: 1. Degenerative spondylosis extended to the left at T9-10 greater than T10-11. 2. Mild disk narrowing at L1-2 with associated spondylosis and trace superior L4 endplate spondylos is. Physician Kingston Date Time Electronically viewed and signed by Physician Kingston on 01/02/2017 19:39 /
[2017-01-03 00:42] VITALS: BP 119/62
[2017-01-03] MEDS: oxyCODONE 5 MG TAB PO PRN ×3 (01:39→15:56)
[2017-01-03] MEDS: DEXTROSE 5%-LR 1,000 ML IV SCH (04:00)
[2017-01-03 06:13] LABS: ADD SCAN DIFF NO
[2017-01-03] MEDS: PANTOPRAZOLE (EC) 40 MG TAB PO SCH (06:35)
--- NOTE | 2017-01-03 07:09 | PN ---
Date/Time of Note Date/Time of Note DATE: 01/03/17 TIME: 07:06 Assessment/Plan VTE Prophylaxis VTE Prophylaxis Intervention: ambulation, SCD's, other (Aspirin 325 mg twice daily) Lines/Catheters IV Catheter Type (from Nrsg): Peripheral IV Giordano in Place (from Nrsg): No Assessment/Plan Assessment/Plan -Pain Meds as needed -Dress change performed today -Dr. Faria recommends shoe lift on contralateral side in the interim. He will discuss with patient. -ASA for DVT Prophylaxis x 6 weeks outpatient discussed. -Continue monitoring as outpatient on discharge -Follow-up at scheduled postop outpatient appointment or sooner if there is any issue. -Tegaderm dressings given with specific instructions to use as outpatient to keep wound dry until opal are moved around 10 days. -Hip precautions discussed -Patient Stable -Discharge to Home with home health Subjective 24 Hr Interval Summary 60-year-old female postop day 4 status post right total hip arthroplasty. Patient had complaints of feeling of abnormal limb length. Limb length was measured via RadLink during surgery showing minimal discrepancy in regards to comparison of bilateral limb. CT scan over the weekend was ordered by Dr. Faria which also sold 0.01 mm difference. As extra precaution, patient was placed back in the operating room for remeasurement with RadLink showing about 5.6mm discrepancy. No surgery was indicated. Patient continues to do well in regards to pain. Is up and walking with weightbearing. Was recommended that patient will likely need shoe lift and will be fitted. Plan is to discharge home today. Exam/Review of Systems Vital Signs Vitals Vital Signs Date Time Temp Pulse Resp B/P Pulse Ox O2 Delivery O2 Flow Rate FiO2 01/03/17 00:42 98.5 73 119/62 96 01/02/17 19:38 15 Room Air 12/30/16 14:25 2.0 Intake and Output 01/02/17 01/02/17 01/03/17 15:00 23:00 07:00 Intake Total 1020 ml 680 ml Output Total 0 ml Balance 1020 ml 680 ml Exam Free Text/Dictation -Incision: Clean, Dry and Intact without any redness or drainage -Thigh soft -5/5 Quadriceps, Tibialis Anterior, EHL Gastrocnemius/Soleus and Peroneals -Normal Sensation -Palpable DP/PT, Capillary Refill <2 secs -No Distal Edema -Negative Christianne Sign/No calf pain -Toes Freely Movable Results Result Diagram: 01/02/17 0510 KARL OLMOS PA-C Jan 03, 2017 07:08
--- NOTE | 2017-01-03 07:13 | DS ---
Date/Time of Note Date/Time of Note DATE: 01/03/17 TIME: 07:10 Discharge Summary Admission/Discharge Info Admit Date/Time Dec 30, 2016 at 06:10 Discharge Date/Time January 03, 2017 Final Diagnosis Status post right total hip arthroplasty Patient Condition: Stable Hospital Course On the day of admission, the patient underwent right total hip arthroplasty Intraoperative complications: None Postoperative complications: None The patient was given prophylactic antibiotics and anticoagulants. On the day of surgery and first postoperative day patient was started on gait training and was taught usual restrictions following anterior hip replacement Suction drain removed on the first postoperative day and the dressings were changed. The wound was found to be clean and healing well. There was no sign of infection. Pain cocktail given. Patient did have complaints of abnormal limb length. CT scan was ordered for further confirmation of equilateral limb length. On the second postoperative day, patient continued with inpatient PT. Dressings were changed. Wound was found to be clean and healing well. No signs of infection. Pain cocktail given. CT scan showing 0.01 mm difference. Patient continued to have complaints of abnormal limb length. On the third postoperative day patient was taken back into the OR for repeat measurement using RadLink showing about 5.6mm discrepancy in regards to limb length. No further surgery was indicated. On the day of discharge, the wound was clean and healing well; there was no sign of infection. The dressings were changed. Discharge Temperature: 98.5 Discharge White Blood Cell Count: 7.8 Discharge Hemoglobin: 8 The patient was discharged home with home health. Arrangements were made for visiting nurses and home health/physical therapy. Tegaderm with pad also provided for patient. Instructions given on how to use to keep wound dry while showering. Patient may discontinue use of Tegaderm with pad after opal have been removed around 10 days postoperatively. The patient will be seen in office at scheduled postoperative evaluation date given on their preoperative exam. Should patient complain of any problems prior to scheduled postoperative evaluation date, they may call into outpatient clinic to determine if they need to be scheduled at sooner appointment to be seen immediately if needed. Discharge medications: As per medication reconciliation form Diet: Same as preadmission diet. This is Karl Burks PA-C dictating discharge summary for Dr. Emory Faria. Home Meds Reported Medications Tramadol HCl (Tramadol HCl) 50 Mg Tablet, 50 MG PO Q8H Y for PAIN, #120 TAB 12/30/16 Follow-up Plan 01/19/2017 at 2:15PM. Primary Care Provider KARL Lazaro PA-C Jan 03, 2017 07:13
[2017-01-03 07:45] LABS: BASOPHILS % 0.3 % (0.0-2.0); EOSINOPHILS # 0.1 10^3/ul (0.0-0.5); EOSINOPHILS % 1.8 % (0.0-7.0); HEMATOCRIT 24.8 % (37.0-47.0); LYMPHOCYTES # 2.3 10^3/ul (0.8-2.9); LYMPHOCYTES % 29.1 % (15.0-51.0); MEAN CORPUSCULAR HEMOGLOBIN 30.5 pg (29.0-33.0); MEAN CORPUSCULAR HGB CONC 32.3 g/dl (32.0-37.0); MEAN CORPUSCULAR VOLUME 94.7 fl (82.0-101.0); MEAN PLATELET VOLUME 11.7 fl (7.4-10.4); MONOCYTE # 0.6 10^3/ul (0.3-0.9); MONOCYTES % 7.9 % (0.0-11.0); NEUTROPHIL # 4.7 10^3/ul (1.6-7.5); NEUTROPHILS % 60.5 % (39.0-77.0); PLATELET COUNT 206 10^3/UL (140-415); RED BLOOD COUNT 2.62 10^6/ul (4.20-5.40); RED CELL DISTRIBUTION WIDTH 14.1 % (11.5-14.5); WHITE BLOOD COUNT 7.8 10^3/ul (4.8-10.8)
[2017-01-03 08:49] VITALS: BP 112/61; RESP 18
[2017-01-03] MEDS: ASPIRIN (EC) 325 MG TAB PO SCH (08:54)
[2017-01-03] MEDS: FERROUS FUMARATE (SR) TAB PO SCH (08:54)
[2017-01-03] MEDS: CELECOXIB 200 MG CAP PO SCH (08:54)
--- NOTE | 2017-01-03 14:11 | RADRPT ---
PROCEDURE: X-ray fluoroscopy guidance CLINICAL INDICATION: Right hip replacement, fluoroscopic guidance TECHNIQUE: Fluoroscopic guidance was utilized for an intraoperative procedure. COMPARISON: None available FINDINGS: Fluoroscopic guidance was utilized for and intraoperative procedure. 6 x-ray images were obtained d uring the procedure in progress. Final images demonstrate a right hip replacement. Prosthetic compo nents appear in appropriate position and alignment. IMPRESSION: X-ray fluoroscopic guidance utilized for intraoperative procedure. Right hip replacement with prosthetic components in appropriate position and alignment. Please see procedure note for details. RPTAT: AA .Shamir Lepe MD, Date Time Electronically viewed and signed by .Shamir Lepe MD, on 01/03/2017 14:11 .P/
--- NOTE | 2017-01-03 14:52 | RADRPT ---
PROCEDURE: XR Chest. CLINICAL INDICATION: Routine examination TECHNIQUE: Chest PA and lateral COMPARISON: None available FINDINGS: The mediastinal structures are unremarkable. There is mild calcification of the thoracic aorta (con sistent with atherosclerosis). The heart is normal in size and configuration. The pulmonary vascul arity is normal. The lung fuentes are unremarkable. No consolidation is identified. The pleural sp aces are unremarkable. There are mild senescent changes of the axial skeleton. IMPRESSION: Calcification of the thoracic aorta (consistent with atherosclerosis). No evidence for active cardiopulmonary disease. RPTAT: HGDB .Henri Arrieta MD, Date Time Electronically viewed and signed by .Henri Arrieta MD, on 01/03/2017 14:51 .B/
--- NOTE | 2017-01-03 17:27 | PREOPHP ---
DATE OF ADMISSION: 12/30/2016 SPEAKER: Pavan Foley. CHIEF COMPLAINT: The patient has chronic right hip pain and osteoarthritis. ALLERGIES: Please see list. CURRENT MEDICATIONS: Please see list. SURGERY: Planned surgery is a right total hip replacement. PAST MEDICAL HISTORY: Consists of goiter. The patient has a history of a schwannoma and status pos t removal. SOCIAL HISTORY: The patient does not smoke, use alcohol or take significant drugs. REVIEW OF SYSTEMS: CARDIOVASCULAR: Negative. RESPIRATORY: Negative. BILIARY: Negative. ENDOCRINE: Positive for thyroid. Renal negative. MUSCULOSKELETAL: Negative except for the above. PHYSICAL EXAMINATION: VITAL SIGNS: Blood pressure 150/84, weight is 130 pounds. HEENT: Normal. HEART: Normal. LUNGS: Normal. ABDOMEN: Normal. NECK: Normal. ASSESSMENT: The patient is medically cleared for her planned procedure. RECOMMENDATIONS: Follow clinical course. Dictated By: GENERIC AUTHOR for RANI CERRATO/SINDHU Conf#: [id number] DID#: [id number]
--- NOTE | 2017-01-04 08:18 | OPR ---
DATE OF OPERATION: 01/02/2017 SURGEON: Emoyr Faria MD ANESTHESIOLOGIST: Dr. Werner INTERNATIONAL STUDENT COUNSELOR: Gabriel Teran PREOPERATIVE DIAGNOSIS: Long right leg following total hip replacement POSTOPERATIVE DIAGNOSIS: Long right leg following total hip replacement: PROCEDURE: Analysis of leg lengths and offset using the [employer] computer. DISCUSSION: Patient underwent a right hip replacement on 12/30/2016. The [employer] computer was used throughout the operation. Two technicians from the [employer] were present in the operating raya m to ensure that all measurements were accurate. The 2 technicians were Gabriel Teran and Moisés lui. These 2 gentlemen are from the [employer] and they are in charge of training operating room personnel in the handling of the computer, as patient's final measurements of her right leg in surgery were "3 mm longer than the starting point and lateralized possibly by 1 or 2 mm." The next morning after surgery, the patient complained that her right leg was too long. Indeed, whe n she stood on her right leg, the left foot cleared the ground. CAT scan leg length measurements were obtained and these showed that the legs were of equal length. However, the validity of the CAT scan is not certain because it nearly measures at 2 least 2 length s of the femur from the center of rotation of the femoral head to the tibial plateau. Accordingly, the patient was brought the operating room to re-measure the modalities. DESCRIPTION OF PROCEDURE: The patient is very anxious and so she was given sedation by Dr. Gutierrez. She was covered with a lead gown to protect her. Multiple x-rays were obtained using a portable im aging machine. Using the technique of overlay from the preoperative image, multiple measurements we re made which showed that the 2 leg lengthening was 5.6 mm. Patient returned to recovery room in stable condition. Some of the findings were discussed with her, but were left for the next morning when she was fully recovered from the anesthetic. CONCLUSION: It is my opinion that this small difference in leg length being approximately ____ mm _ ___fully recovered from her sedation. X-rays of the lumbar spine were obtained in the recovery room to determine if there was a scoliosis or pelvic tilt. DISCUSSION: The patient's leg lengths were measured that using blocks in my office on the preoperat doris visit. She was found to be 1/8 of an inch shorter than on the left side. We discussed that we would lengthen the leg to even them up and make up for the 2 mm difference. At her hip replacement operation, the [employer] computer indicated that the leg had been lengthened 3 mm from the -2 mm preoperative position. The new measurements obtained today indicate that the leg was lengthened 5.6 mm from the starting position. Subtracting the 2 mm of shortening found in my of tegan, that would indicate that the leg had been lengthened by 3.8 mm. The patient is advised that it is difficult to explain fully why she has a sensation of the leg bein g that much too long. She was advised that many patients have a sensation that the leg is too long and goes away over the first 2 or 3 weeks. Most certainly for this small amount of leg length discrepancy, no reoperation is indicated. Patient will be provided information to get a 1/4 inch shoe lift issue for her left shoes. She will wear these for a month and then stop and see how she does as far as leg lengths go. In all likelih ood, the leg lengths will feel equal after 4 to 6 weeks. Note that the 2 technicians from the company was brought in today because the second last surgery be fore this patient had an anomaly related to the computer measurements in that we were told by the te chnician that the leg would be 1/2 of an inch short. The final measurements before installing the f emoral head showed that the leg would be 0.5 mm shorter than the commencing point. However, the fin al measurements indicated that the leg was 3.8 mm long. Because of this unexplained anomaly, the 2 technicians were brought in to come and supervise the taking of the [employer] data and comparative priscila surement. Dictated By: EMORY VELARDE/SINDHU Conf#: [id number] DID#: [id number]
== END 2017-01-03 17:10 | disposition home health service (06) | DRG 470 ==
LOC: REC 06:10 → MS1 14:56
PROC: 0SR904A Replacement of Right Hip Joint with Ceramic on Polyethylene Synthetic Substitute, Uncemented, Open Approach (ICD-10-PCS; principal; 2016-12-30 08:00)
DX: M16.11 Unilateral primary osteoarthritis, right hip (principal)
CPT/HCPCS: 71020; 72020; 73500; 73530; 73700; 85025; 86850; 86900; 86901; 86920; 88304; 88311; 97110; 97116; 97162; 97167; 97530; J1940; C1776; J0131; J0171; J0690; J0735; J1100; J1644; J1885; J2250; J2270; J2274; J2405; J2710; J2795; J3010; J3370; J7120; J7121

== ENCOUNTER → 2017-01-19 | Outpatient (CLI) | payer BC ==
[~2017-01-19] MED LIST changes: -ACETAMINOPHEN 1000MG/100ML IV 100 ML IVPB ONE; -CELECOXIB 200 MG CAP PO ONE; -DEXAMETHASONE 4 MG/ML 1 ML INJ IV ONE; -LACTATED RINGER'S 1,000 ML IV* SCH; -LANSOPRAZOLE 30 MG CAP PO ONE; -ONDANSETRON 4 MG INJ IV ONE; -SOD CHLORIDE 0.9% IVPB ONE; +TRAM50TA2 PO; -TRANEXAMIC ACID IVPB ONE; -VANCOMYCIN 1 GM (PMX) 250 ML IVPB ONE; -oxyCODONE (CR) 10 MG TAB [oxyCONTIN] PO ONE
--- NOTE | 2017-02-10 11:39 | HKNOTE ---
DATE OF SERVICE: 01/31/2017 HISTORY OF PRESENT ILLNESS: The patient is now 3 weeks following right total hip replacement. She comes in for a checkup. The legs feel even in length. She has minimal pain in her hip. PHYSICAL EXAMINATION: Her temperature is 98.0. The hip wound is healing well, but there is redness around the lower end of the skin edges. MANAGEMENT: The patient was given a prescription for doxycycline. She is already on Keflex. She will see me in one week's time for further evaluation. Dictated By: Emory Faria MD /vishal/oscar /Document#: [id number]
== END | disposition home or self-care (01) ==
LOC: HKI 14:22
DX: M25.551 Pain in right hip (principal); Z96.641 Presence of right artificial hip joint; Z47.1 Aftercare following joint replacement surgery
CPT/HCPCS: 20610

== ENCOUNTER → 2017-01-26 | Outpatient (CLI) | payer BC ==
--- NOTE | 2017-02-09 11:13 | HKNOTE ---
DATE OF SERVICE: Patient underwent a right total hip replacement on 12/30/2016. There was some concern while she is in the hospital as to whether or not there was a leg length discrepancy. She was taken down to the operating room without anesthesia and without anesthesia the Radlink system was used to re-measure her leg lengths. There is some possibility that she was perhaps 3 mm longer on the operated side, which is very satisfactory. She is now ecstatic with the results of her hip replacement. She can walk without a walking aid. She has no pain in the right hip. She is currently complaining of pain in her right knee, which was present before the surgery. I felt that the knee pain was probably referred from the hip but there has not been any improvement since the hip replacement. The right knee does not swell, lock or feel unstable. PHYSICAL EXAMINATION: VITAL SIGNS: Blood pressure 140/70, temperature 97.8. HIPS: The right hip wound is completely healed. She walks without a walking aid and her gait is normal. RIGHT KNEE: No swelling. Full range of motion. No tenderness anywhere around the knee. The knee is 100 percent normal clinically. DISCUSSION: I did feel that this was a referred pain from her hip. At her last visit, I gave her an injection of anesthetic and cortisone into the right knee. There is no improvement in the pain while she was in the office and there are no improvements since she left the office. At this point, I have to believe that this is a referred pain from the hip and there is nothing to do but to wait and see how this works out as the hip pain improves. Note that there is no swelling, locking or instability of the right knee. She will be seen again in 3 weeks' time for evaluation. Dictated By: Emory Faria MD /vishal/fox /Document#: [id number]
== END | disposition home or self-care (01) ==
LOC: HKI 15:22
DX: Z47.1 Aftercare following joint replacement surgery (principal); Z96.641 Presence of right artificial hip joint; M25.561 Pain in right knee

== ENCOUNTER → 2017-02-09 | Outpatient (CLI) | payer BC ==
--- NOTE | 2017-02-09 16:34 | PN ---
Date/Time of Note Date/Time of Note DATE: 02/09/17 TIME: 16:30 Outpatient Progress Note Chief Complaint 6 weeks status post right total hip arthroplasty HPI 61-year-old female presents today for 6 week postoperative appointment status post right total hip arthroplasty performed on 12/30/2016. Patient denies any pain to the right hip. Patient is return to normal functionality in regards to gait and daily activities. Patient is very pleased status post surgery today. Cortisone injection performed to the right knee on last evaluation has been providing relief to the knee. Denies any falls or injury. Denies any calf pain. Denies any chest pain/tightness. Review of Systems Const: No Fever, no chills, no Fatigue, normal appetite, no diaphoresis. Resp: No SOB, no wheezing, no chest pain. CV: No chest pain, no palpitaions, no ANDRADE. Physical Exam Blood pressure is 119/58, temperature is 98.1, pulse is 78, respiratory rate is 12, height is 5 foot 1 inch, weight is 125 pounds General Appearance: well-developed, well-nourished, in no acute distress. Right hip: Well-healed surgical scarring to the right hip. Patient is able to flex and sit comfortably at 90. Additional flexion of 10-15 while seated. Gait is normal and nonantalgic. Patient is able to cross her legs today without discomfort. 5/5 strength on resistance. Negative Homans sign. Normal sensory examination. Imaging X-ray of the right hip and pelvis performed on 02/09/2017 showing all components appearing well aligned, attached and integrated to the bone. No signs of any lucency between metal and bone. Allergies Coded Allergies: No Known Allergy (Unverified , 12/30/16) Assessment/Plan * Patient was advised to avoid crossing legs as this can create increased risk of dislocation to the hip shortly after surgery. * Exercise materials for different exercises to be performed at home for strengthening the muscle surrounding the hip provided for patient today. * Antibiotic card 2 provided for patient today * Patient may discontinue restrictions/hip precautions. * Advised to gradually increase activity and safely. Avoid certain activities such as squatting using weights as she does go to the gym. * Follow-up in 4.5 months. Antibiotic card provided for patient. Patient made aware that dental prophylaxis will be necessary prior to any dental procedure for the remainder of their lifetime. Patient is aware that they must contact their dentist prior to any procedure to inform them of previous joint replacement with prosthesis implant so appropriate antibiotic may be prescribed to lower risk of joint infection status post surgery. Card will also serve as confirmation should patient be traveling and have to go through security such as at an airport. Dr. Faria was also present for examination and agrees with plan. Medications Home Meds Reported Medications Tramadol HCl (Tramadol HCl) 50 Mg Tablet, 50 MG PO Q8H Y for PAIN, #120 TAB 12/30/16 KARL OLMOS PA-C Feb 09, 2017 16:34
--- NOTE | 2017-02-09 18:10 | RADRPT ---
PROCEDURE: XR Right hip and pelvis. CLINICAL INDICATION: Right hip pain. Pelvic pain. Postop. TECHNIQUE: Two views. Frontal pelvis and lateral right hip. COMPARISON: Intraoperative imaging dated 01/02/2017. FINDINGS: There is no fracture or dislocation. The soft tissues are normal. There is a right hip total arthroplasty which appears satisfactory. There are degenerative changes of the left hip with osteophytes noted. Surgical clips are present i n the pelvis. There is no lytic or blastic lesion. The upper pelvis is not completely included on the image. IMPRESSION: 1. Satisfactory postoperative appearance of the right hip. 2. Mild degenerative changes of the left hip. 3. Prior pelvic surgery. RPTAT: QQ .Chad Quintana MD, MD Date Time Electronically viewed and signed by .Chad Quintana MD, on 02/09/2017 18:10 .R/
== END | disposition home or self-care (01) ==
LOC: HKI 15:22
DX: Z47.1 Aftercare following joint replacement surgery (principal); Z96.641 Presence of right artificial hip joint
CPT/HCPCS: 73502

== ENCOUNTER → 2017-03-01 | Outpatient (CLI) | payer BC ==
--- NOTE | 2017-03-02 10:21 | HKNOTE ---
DATE OF SERVICE: 03/01/2017 MAIN COMPLAINT: Patient continues to complain of pain in her right knee. HISTORY OF MAIN COMPLAINT: The patient states that the pain is severe enough that "I cannot shop and if a girl cannot shop there is something wrong." The knee does not swell nor does not lock, nor does it feel unstable. She occasionally limps. She does not need any support. The cortisone injection I gave her helped for 3 weeks. She takes an occasional ibuprofen. The pain is mostly on the medial side and lateral side of the patella, and above the patella. The pain also radiates down the back of her right leg from the buttocks to the knee. The pain also radiates down the leg to the ankle. She has never had any problems with her back, although she did have an MRI scan once in the past. PHYSICAL EXAMINATION: KNEES: The right knee has a full range of motion without pain. There is no tenderness anywhere around the knee or the area in indicated as being painful. Straight leg raising is negative bilaterally at 80 degrees. MANAGEMENT: Patient is advised that clinically the knee is normal. The x-rays we have taken of the knee are normal. It is difficult to know what is going on here. I do not believe it has anything to do with her hip replacement, possibly this is a radicular type of pain. The patient be referred for an MRI scan of the lumbar spine without contrast. She is given a prescription for Valium so that she could handle her claustrophobia. Dictated By: Emory Faria MD /vishal/fox /Document#: [id number]
== END | disposition home or self-care (01) ==
LOC: HKI 13:46
DX: M25.561 Pain in right knee (principal)
CPT/HCPCS: G0463

== ENCOUNTER → 2017-05-02 | Outpatient (CLI) | payer BC ==
--- NOTE | 2017-05-03 06:45 | HKNOTE ---
DATE OF SERVICE: The patient comes in for review of her lumbar MRI scan. She is delighted to tell me that she no pop eric has any pain in the right knee. She now has some pain in the anterior aspect of the right groin. This is a new development only not iced in the last week. It started after a particularly vigorous work out at the gym. She has no re st pain. She only gets this pain on walking and on full extension of the hip in the gait phase. Doni norris is not taking any pain medications. She walks about a mile every morning. The pain is plateaued, is not getting better or worse. She has not had any recent infections. PHYSICAL EXAMINATION: VITAL SIGNS: The patient's temperature is 98.3, blood pressure 133/62. GAIT: Normal. RIGHT HIP: A full range of motion without pain. IMAGING: Plain x-rays of the right hip obtained today were reviewed. The old components are all we ll aligned. There has been no change in the orientation or bone interfaces when compared to progres sive x-rays taken from the time of her surgery. An MRI scan of the lumbar spine obtained on 03/07/[address] Worley as showing minimal changes (please see the entire report). MANAGEMENT: The patient is advised that the pain in the knee probably was referred from the spine, even though the changes in her spine are minimal on MRI. The new pain in the anterior aspect of the hip is somewhat worrisome. Certainly, I do not believe s he has any suggestion of infection. No radiological features to suggest loosening. The patient is being sent for CBC and sed rate and C-reactive protein. She was given a prescription for amoxicillin, which she will not take except for prophylaxis for dental work or if she thinks doni norris has infection. We will note the results of the CBC and sed rate. If there is any suggestion that there might be infection, I will give her a call and she can start the antibiotics. She will be se en again as necessary. Dictated By: RANI VELARDE/SINDHU Conf#: [id number] DID#: [id number]
--- NOTE | 2017-05-03 12:34 | RADRPT ---
PROCEDURE: Hip radiograph CLINICAL INDICATION: Pain. TECHNIQUE: AP and frog lateral views of the right hip were performed. COMPARISON: There are no similar studies submitted for comparison. FINDINGS: Alignment of right total hip arthroplasty is anatomic. No hardware fracture. No suspicious steve-hardware lucency. Surgical clips within the pelvis. Moderate left hip joint space narrowing with subcortical cysts and sclerosis. Pubic symphysis and sacroiliac joint spaces are preserved. No localized soft tissue swelling. IMPRESSION: Alignment of right total hip arthroplasty is anatomic. No evidence of hardware complication. RPTAT: AA Physician Judah Date Time Electronically viewed and signed by Physician Judah on 05/03/2017 12:34 LG/
== END | disposition home or self-care (01) ==
LOC: HKI 09:20
DX: M25.561 Pain in right knee (principal); M25.551 Pain in right hip
CPT/HCPCS: 73502; G0463